=== PATIENT | male | born 2000 | race Two or more races ===

== ENCOUNTER 2019-03-02 13:35 | Emergency (ER) | payer OTHER | END 2019-03-02 15:12 | disposition still patient (30) | LOC: NAV ERS 13:35 | DX: S92.301A Fracture of unspecified metatarsal bone(s), right foot, initial encounter for closed fracture (principal); F41.9 Anxiety disorder, unspecified; F32.9 Major depressive disorder, single episode, unspecified; F39 Unspecified mood [affective] disorder; Z79.899 Other long term (current) drug therapy; X50.1XXA Overexertion from prolonged static or awkward postures, initial encounter; Y93.67 Activity, basketball ==